=== PATIENT | male | born 1975 | race Caucasian/White ===

== ENCOUNTER → 2017-12-06 | Outpatient (CLI) | payer BC | LOC: CIMAGING 18:08 | PROVIDERS: ATTEND Family Medicine | DX: Z01.818 Encounter for other preprocedural examination (principal) | CPT/HCPCS: 71046-PO ==

== ENCOUNTER → 2018-04-01 | Outpatient (CLI) | payer BC | LOC: BRMIMAGING 09:34 | PROVIDERS: ATTEND Family Medicine | DX: N63.12 Unspecified lump in the right breast, upper inner quadrant (principal); N62 Hypertrophy of breast; Z13.220 Encounter for screening for lipoid disorders; E29.1 Testicular hypofunction; R73.01 Impaired fasting glucose | CPT/HCPCS: 76641-PO ==